=== PATIENT | male | born 1935 | race Caucasian/White ===

== ENCOUNTER 2016-08-03 08:31 | Emergency (ER) | payer MEDICARE ==
[~2016-08-03] VITALS: Ht 185.4 cm; Wt 105.2 kg
[2016-08-03 08:35] VITALS: BP 150/84; PULSE 63; TEMP 36.6; O2SAT 96; Ht 185.4 cm; Wt 105.2 kg
[2016-08-03] MEDS ORDERED: RABIES VACCINE (IMOVAX) HUMAN DIPL CELL 2.5 INTER.UNIT/ML SYR IM. ONE (08:42)
[2016-08-03] MEDS ORDERED: KRIL1CAP7 PO (08:48)
[2016-08-03] MEDS ORDERED: FLV400 PO (08:48)
[2016-08-03] MEDS ORDERED: LEVO175T PO (08:48)
[2016-08-03] MEDS ORDERED: LISI-725 PO (08:48)
[2016-08-03] MEDS ORDERED: REPA2TAB12 PO (08:48)
[2016-08-03] MEDS ORDERED: ROSU20TA PO (08:48)
[2016-08-03] MEDS ORDERED: MULT-506 PO (08:48)
[2016-08-03] MEDS ORDERED: INSDGIPEN SC (08:48)
[2016-08-03] MEDS ORDERED: COEN150C PO (08:48)
[2016-08-03] MEDS ORDERED: INSU100I SC (08:48)
--- NOTE | 2016-08-03 08:58 | EMERGENCY ROOM VISIT NOTE ---
ED Visit Note First contact with patient: 08:43 CHIEF COMPLAINT: He is here for his final rabies vaccine HISTORY OF PRESENT ILLNESS: This 81-year-old male patient presents to the emergency department for his final rabies vaccine in a series. On 07/20/16, patient was evaluated at another hospital for possible exposure to a rapid groundhog. The groundhog was killed and sent to the [facility] with confirmation positive rabies. Patient states he received his initial immunoglobulin and vaccine on 07/20/16. He has received his second and third vaccines at other hospitals on 07/22 and 07/27 respectively. He denies any reactions or complications with receiving the vaccines and has not had any signs of infection on his leg where he was scratched by the groundhog. He states he has been traveling the [facility] on a camping expedition, which is why he has been to multiple facilities for treatment. REVIEW OF SYSTEMS: A 6 system review of systems was completed with positives and pertinent negatives listed in the HPI. ALLERGIES: See chart MEDICATIONS: See chart PMH: See chart. SOCIAL HISTORY: See chart. PHYSICAL EXAM: Vital Signs: Reviewed Nurse's notes, vital signs stable. GENERAL : Pleasant and cooperative, in no acute distress, well-developed, well- nourished. HEAD: Atraumatic, without temporal or scalp tenderness. EYES: PERRLA, EOMI, no discharge or injection. SKIN: Skin of the right ankle was examined where patient states he was initially scratched, no erythema, swelling , drainage, tenderness noted. Capillary refill less than 2 seconds. NEUROLOGICAL: Alert and oriented to person place and time. Normal sensation to light and sharp touch. MUSCULOSKELETAL: Motor functions grossly intact of all extremities. Full range of motion. EMERGENCY DEPARTMENT COURSE: I examined the patient. The patient was given Imovax 1ml IM. The patient was observed for 20 minutes with no reaction. The patient was discharged home in stable condition. Current/Historical Medications Scheduled Coenzyme Q10 (Ubidecarenone) (Co Q-10), 150 MG PO PM Folic Acid (Folic Acid), 400 MCG PO DAILY Insulin Glargine (Lantus Solostar), 50 UNITS SC HS Insulin Lispro (Human) (Humalog), 1 DOSE SC DIRECTED Krill Oil (Krill Oil Poth-3), 1 CAP PO DAILY Levothyroxine Sodium (Synthroid), 175 MCG PO DAILY Lisinopril (Zestril), 20 MG PO DAILY Multivitamin (Multivitamin), 1 TAB PO DAILY Repaglinide (Prandin), 2 MG PO BID Rosuvastatin Calcium (Crestor), 20 MG PO DAILY Allergies Coded Allergies: Adhesives (Unverified Adverse Reaction, Intermediate, RASH, 08/03/16) Vital Signs Date Time Temp Pulse Resp B/P (MAP) Pulse Ox O2 Delivery O2 Flow Rate FiO2 08/03/16 08:35 36.6 63 18 150/84 96 Room Air Medications Administered Medications (Trade) Dose Ordered Sig/Arsenio Route Start Time Stop Time Status Last Admin Dose Admin Rabies Vaccine Human Diploid Cell (Imovax Rabies) 2.5 interunit STK-MED ONCE IM. 08/03/16 08:42 08/03/16 08:43 DC 08/03/16 08:47 2.5 INTERUNIT Departure Information Impression Primary Impression: Encounter for repeat administration of rabies vaccination Dispostion Home / Self-Care Condition GOOD Referrals No Doctor, Assigned (PCP) Patient Instructions My [facility], Rabies Additional Instructions Today was your final rabies vaccine. Please follow-up with your PCP as needed.
== END 2016-08-03 09:05 | disposition home or self-care (01) ==
LOC: C.EDB 08:33
DX: Z20.3 Contact with and (suspected) exposure to rabies (principal); Z23 Encounter for immunization; Z79.4 Long term (current) use of insulin; Z79.899 Other long term (current) drug therapy